=== PATIENT | female | born 1955 | race African-American/Black ===

== ENCOUNTER 2018-12-14 10:57 | Emergency (ER) | payer MEDICARE, OTHER ==
[2018-12-14] MEDS: KETOROLAC 15 MG INJ IM (13:24)
== END 2018-12-14 15:03 | disposition home or self-care (01) ==
LOC: FTE 10:57
DX: R68.84 Jaw pain (principal); I10 Essential (primary) hypertension
CPT/HCPCS: 70140; 96372; 99284-25